=== PATIENT | male | born 1955 | race African-American/Black ===

== ENCOUNTER 2017-03-13 02:30 | Inpatient (IN) | payer OTHER ==
[~2017-03-13] VITALS: Ht 180.3 cm; Wt 103.3 kg
[2017-03-13] VITALS (13 sets, daily range): BP systolic 110–143; BP diastolic 64–85
--- NOTE | ~2017-03-13 | CATHLAB ---
[facility] [place] [address] INVASIVE PROCEDURE REPORT Name: KASHIF CHO JR Room #: 203-P ADM IN ..#: [id number] Admission: 03/13/17 Attend Phys: Eliezer Keith Discharge: Date of : 57 Date of Service: 03/13/17 0827 Report #: [id number] THIS REPORT FOR: //name// APPROVED REPORT Patient Details Patient Status: ED Room #: The patient is a 62 year-old male Event Personnel Feliz Crocker Jailer Chief, Kindra Wyman RN RN, Gaurav Arteaga, Melita Marquez Monitor, Kindra Stoner Monitor Procedures Performed Left Heart Cath w/or w/o Coronaries [id number] [facility] ADITHYA Revasc AMI Total/Sub Single CIRC C9606 AMIREVSING Procedure Narrative The Right Groin^ was infiltrated with 1% Lidocaine subcutaneous anesthesia. A PINNACLE 6FR Sheath #[id number] sheath was inserted into the RFA^. Coronary angiography was performed using coronary diagnostic catheters. The right coronary system was accessed and visualized with a JR4 catheter. The left coronary system was accessed and visualized with a JL4 catheter. The left ventricle was accessed and visualized with a PIGTAIL catheter. Left ventricular/Aortic Valve gradient assessed via catheter pullback. Left ventriculogram was performed in 30 degree projection. There was no hematoma. Intraoperative Conscious Sedation Sedation start time: 4:08 Case end Time: 5:00 Versed 1.0 mg Fluoro Time: 8.30 minutes Dose: DAP 1500.00 cGycm2 1500 mGy Contrast Type and Amount: Omnipaque 155 ml Coronary Angiography The patient's coronary anatomy is co- dominant. Diagnostic Cath Left Main Angiographically normal LAD The LAD and several small diagonal branches were [facility] [address] [place] [address] INVASIVE PROCEDURE REPORT Name: KASHIF CHO Room #: 203-P [facility] IN [facility].#: [id number] Admission: 03/13/17 Attend Phys: Eliezer Keith Discharge: Date of : 57 Date of Service: 03/13/17 0827 Report #: [id number] angiographically normal Circumflex Mid circumflex was acutely occluded with VIANNEY 0 flow OM1 The first, mid vessel arising marginal branch was large in caliber and exhibited mild plaquing OM2 The second, distally arising marginal branch was smaller in caliber and exhibited mild proximal plaquing Right Coronary Co-ominant right coronary. 40-50% distal right coronary before the origin of the posterior descending. R PDA Mild 20% mid vessel PDA plaquing Ramus Large ramus branch that bifurcated in its mid portion and was angiographically normal Left Ventriculography The left ventricle is normal in size with normal contractility. The left ventricular ejection fraction is estimated to be 50-55%. Left ventricular wall motion abnormalities are present. There is no mitral insufficiency. Hemodynamics The aortic pressure is 188/90 mmHg with a mean of 71 mmHg. The left ventricular pressure is 149/15 mmHg with a mean of mmHg. The left ventricular end diastolic pressure is 31 mmHg. There was no gradient across the aortic valve upon pullback. Pullback from the left ventricle to the aorta revealed no gradient across the aortic valve. PCI Technique Mid Cx wired with 0.014in Luge wire, then ballooned with 2.5mm MOZEC balloon. VIANNEY III flow restored. Balloon removed and a long, variable and severe mid-Cx stenosis stented with a 3.0 x 30mm Resolute stent, post-dilated with a 3.0mm NC Trek to 18 CRIS VIANNEY III flow restored with 0% residual stenosis PCI Technique Lesion Anticoagulation was achieved with Heparin, integrelin. Patient was preloaded with Effient PO 60 mg. Percutaneous coronary intervention was performed on the mid circumflex artery segment. The lesion stenosis prior to intervention was 100% with VIANNEY 0 flow. A VISTA 6FR XB 3.5 #[id number] Guide Catheter was used to engage the LCA ostium. A Luge Wire .014 x 182CM #[id number] Interventional Guidewire was used to cross the lesion. BALLOON DILATION A Balloon catheter 2.5X14 MOZEC was inserted and inflated up to 10atm for 25seconds. Repeat angiography revealed the following [facility] [address] [place] [address] INVASIVE PROCEDURE REPORT Name: KASHIF CHO Room #: 203-P [facility] IN M.R.#: [id number] Admission: 03/13/17 Attend Phys: Eliezer Keith Discharge: Date of : 57 Date of Service: 03/13/17 0827 Report #: [id number] post-dilatation results: Yazidi of VIANNEY III flow. Long, variable mid-Cx stenosis. Additional Inflation: 12atm for 20seconds. STENT DEPLOYMENT A drug-eluting stent RESOLUTE RX 3.0 X 30 #[id number] was inserted and inflated up to 12atm for 20seconds. Repeat angiography revealed the following post-stent deployment results: 0% residual with VIANNEY III flow. POST STENT DEPLOYMENT BALLOON DILATION A Balloon catheter TREK NC RX 3.0 X 15 #[id number] was inserted and inflated up to 16atm for 20seconds. Repeat angiography revealed the following post-dilatation results: 0% residual with VIANNEY III flow.. Additional Inflation: 18atm for 30seconds. Additional Inflation: 18atm for 20seconds. OM 1 branch, discreet spasm eleviated with IC NTG Final angiography reveals 0 % stenosis with VIANNEY 3 flow. PCI Technique Lesion 2 Percutaneous Coronary Intervention was performed on the Unspecified. PCI Technique Lesion 3 Percutaneous Coronary Intervention was performed on the Unspecified. Conclusion 1. Mild left ventricular dysfunction with mild inferior wall hypokineisis (EF 55%) 2. Normal left main 3. Normal left anterior descending 4. Occlusion of mid-Cx, successfully stented with 3.0 x 30mm Resolute medicated stent. Post dilated to 3.1mm w/non-compliant balloon 5. Co-dominant RCA. 40-50% distal RCA before origin of PDA Recommendations Smoking Cessation Cardiac Rehabilitation Referral Aggressive Medical Therapy Medications Administered LUIS Inhibitor (any) Aspirin (any) Beta Shavonne (any) [facility] [place] [address] [place] [address] INVASIVE PROCEDURE REPORT Name: KASHIF CHO JR Room #: 203-P ADM IN M.R.#: [id number] Admission: 03/13/17 Attend Phys: Eliezer Keith Discharge: Date of : 57 Date of Service: 03/13/17826 Report #: [id number] Statin (any) Prasugrel Cardiac Rehabilitation Referral Smoking Cessation <ELECTRONICALLY SIGNED> By: Feliz Crocker MD, FACC 03/13/17826 6 6 Feliz Crocker MD, FACC /INF
--- NOTE | ~2017-03-13 | HC ---
[facility] [place] [address] CONSULTATION Name: KASHIF CHO Room #: 203-P [facility] IN M.R.#: [id number] Admission: 03/13/17 Attend Phys: Eliezer Bolivar Discharge: Date of : 57 Report #: [id number] THIS REPORT FOR: //name// CC: Elliott Bolivar DATE OF SERVICE: 03/13/2017 DATE OF SERVICE: 03/13/2017 REASON FOR CONSULTATION: Chest pain. HISTORY OF PRESENT ILLNESS: The patient is a 62-year-old with history of hypertension and tobacco dependency. Yesterday morning, he experienced midsternal chest and jaw pain. This waxed and waned throughout the day and actually got worse this evening, prompting him to call paramedics. He was brought to the Emergency Department where his initial EKG demonstrated sinus bradycardia without acute ST or T-wave changes. A followup EKG demonstrated [address] elevation. I was asked to see him in this regard. He does have ongoing mild chest discomfort with diaphoresis. He denies heart failure symptoms. No prior cardiac history. No history of palpitations, near syncope or syncope. ALLERGIES: No known drug allergies. MEDICATIONS: Include lisinopril. PAST MEDICAL HISTORY: Past medical history and medical records have been reviewed. There are no significant hospitalizations, illnesses or surgeries. 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 He is a smoker. . FAMILY HISTORY: Unremarkable for premature coronary disease. REVIEW OF SYSTEMS: All systems negative except as that noted above. PHYSICAL EXAMINATION: GENERAL: A pleasant gentleman who is in no acute distress. VITAL SIGNS: Blood pressure is 114/67, heart rate is 62 and regular. He is afebrile. HEENT: There are neither xanthelasma, subcutaneous xanthomata, oral mucosal or digital cyanosis or kyphoscoliosis present. CHEST: Clear to auscultation and percussion. CARDIOVASCULAR: Regular rate and rhythm with normal S1, S2. ABDOMEN: Soft and nontender. [facility] [address] [place] [address] CONSULTATION Name: KASHIF CHO Room #: 203-P [facility] IN M.R.#: [id number] Admission: 03/13/17 Attend Phys: Eliezer Bolivar Discharge: Date of : 57 Report #: [id number] EXTREMITIES: Without cyanosis, clubbing or edema. Radial pulses are 2+. NEUROLOGIC: Alert with a nonfocal exam. LABORATORY DATA: Sodium is 139, potassium 3.6, creatinine 1.2, troponin 0.15. White count is 8.3, hemoglobin 13, hematocrit 40, platelet count 251. Chest x-ray is pending. IMPRESSION: 1. Acute inferior myocardial infarction. 2. Tobacco dependency. 3. Hypertension. RECOMMENDATIONS: 1. Therapy with aspirin, antiplatelet, nitrates. Hold beta blockade given relative bradycardia. 2. Urgent coronary angiography. I have discussed the angiographic procedure in detail including its associated risks. After a thorough discussion of the procedure, its risks and alternatives and after answering his questions in detail, he is agreeable to proceeding. <ELECTRONICALLY SIGNED> By: Feliz Crocker MD, FACC 03/14/17 1711 0353 [id number] Feliz Crocker MD, FACC /nt
--- NOTE | ~2017-03-13 | EKG ---
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: MZOOK : 1955 Requested By: Marta Anand Order Number: [id number] MD: Fei Webster Measurements Intervals [place] Rate: 46 P: 80 [place]: 179 QRS: 95 QRSD: 92 T: 91 QT: 482 QTc: 422 Interpretive Statements Sinus bradycardia Right axis deviation ST elevation, consider inferior injury Compared to ECG 04/30/2001 05:59:35 Possible ischemia now present ST (T wave) deviation now present Myocardial infarct finding now present Sinus rhythm no longer present Electronically Signed On 03-14-2017 6:44:15 CDT by Fei Webster [email or web address] <ELECTRONICALLY SIGNED> By: Fei Webster MD 03/14/17 0644 1 1 Fei Webster MD /EPI
--- NOTE | ~2017-03-13 | EKG ---
[address] [address] ELECTROCARDIOGRAM REPORT Name: KASIHF CHO JR Room #: 203-P ADM IN M.R.#: [id number] Admission: 03/13/17 Attend Phys: Eliezer Bolivar Discharge: Date of : 57 Report #: [id number] THIS REPORT FOR: //name// [facility] Test Date: 2017-03-13 Test Time: 06:36:42 Pat Name: KASHIF CHO Department: Room: 203 Gender: M Torpedo Worker: SANDRA : 1955 Requested By: Feliz Crocker Order Number: [id number] MD: Fei Webster Measurements Intervals [place] Rate: 66 P: 74 [place]: 189 QRS: 88 QRSD: 91 T: 18 QT: 439 QTc: 460 Interpretive Statements Sinus rhythm Borderline right axis deviation Minimal ST elevation, anterior leads Compared to ECG 04/30/2001 05:59:35 ST (T wave) deviation now present Electronically Signed On 03-14-2017 6:46:13 CDT by Fei Webster [email or web address] <ELECTRONICALLY SIGNED> By: Fei Webster MD 03/14/17645 5 5 Fei Webster MD /EPI
--- NOTE | ~2017-03-13 | EKG ---
[address] [address] ELECTROCARDIOGRAM REPORT Name: KASHIF CHO Room #: 203-P ADM IN M.R.#: [id number] Admission: 03/13/17 Attend Phys: Eliezer Bolivar Discharge: Date of : 57 Report #: [id number] THIS REPORT FOR: //name// [facility] ED Test Date: 2017-03-13 Test Time: 02:58:25 Pat Name: KASHIF CHO Department: Room: 203 Gender: M Offal Roller: MZOOK : 1955 Requested By: Marta Anand Order Number: [id number] MD: Fei Webster Measurements Intervals [place] Rate: 51 P: 87 [place]: 187 QRS: 97 QRSD: 90 T: 96 QT: 465 QTc: 429 Interpretive Statements Sinus rhythm Inferior infarct, acute (RCA) Probable RV involvement, suggest recording right precordial leads Electronically Signed On 03-14-2017 6:44:44 CDT by Fei Webster [email or web address] <ELECTRONICALLY SIGNED> By: Fei Webster MD 03/14/17 0644 D: [id number] Fei Webster MD /NATALIE
--- NOTE | ~2017-03-13 | EKG ---
[address] [place] [address] ELECTROCARDIOGRAM REPORT Name: KASHIF CHO JR Room #: 203-P ADM IN M.R.#: [id number] Admission: 03/13/17 Attend Phys: Eliezer Bolivar Discharge: Date of : 57 Report #: [id number] THIS REPORT FOR: //name// [facility] Test Date: 2017-03-14 Test Time: 06:07:02 Pat Name: KASHIF CHO Department: Room: 203 P Gender: M Backside Grinder: SANDRA : 1955 Requested By: Feliz Crocker Order Number: [id number] MD: Feliz Crocker Measurements Intervals [place] Rate: 61 P: 60 [place]: 175 QRS: 76 QRSD: 99 T: -16 QT: 442 QTc: 446 Interpretive Statements Sinus rhythm RSR' in V1 or V2, right VCD Borderline T abnormalities, diffuse leads Compared to ECG 04/30/2001 05:59:35 RSR' in V1 or V2 now present T-wave abnormality now present Electronically Signed On 03-14-2017 10:14:07 CDT by Feliz Crocker [email or web address] <ELECTRONICALLY SIGNED> By: Feliz Crocker MD, [facility] 03/14/17 [phone] Feliz Crocker MD, [facility] /EPI
[2017-03-13 02:40] LABS: ABSOLUTE NEUTROPHILS 3.1 thou/uL (1.4-8.2); BASOPHILS 1.1 % (0.0-2.0); EOSINOPHILS 3.7 % (0.0-3.0); HEMATOCRIT 40.2 % (42.0-52.0); HEMOGLOBIN 13.8 gm/dL (14.0-18.0); MCH 31.7 pg (26.0-34.0); MCHC 34.2 g/dL (28.0-37.0); MCV 92.7 fL (80.0-100.0); MONOCYTES 10.2 % (1.0-8.0); PLATELET COUNT 251 thou/uL (150-400); RBC 4.34 mil/uL (4.50-6.00); RDW 14.4 % (10.5-14.5); WBC 8.3 thou/uL (4.0-11.0)
[2017-03-13 02:42] LABS: MANUAL DIFF NO
[2017-03-13 02:46] LABS: CREATININE 1.2 mg/dL (0.7-1.3); POTASSIUM 3.6 mmol/L (3.5-5.1)
[2017-03-13 02:55] LABS: APTT 26.6 Seconds (24.5-32.8); PROTIME 10.2 Seconds (9.3-11.4); TROPONIN-I 0.15 ng/mL (<0.06)
[2017-03-13] MEDS ORDERED: LISINOPRIL10 MG PO (03:25)
[2017-03-13 04:46] LABS: CHOLESTEROL 231 mg/dL (<200); HDL CHOLESTEROL 45 mg/dL (>40); LDL CHOLESTEROL 168 mg/dL (<100); TC:HDL 5.1 Ratio (Not establshd); TRIGLYCERIDE 90 mg/dL (<150); VLDL 18 mg/dL (<40)
[2017-03-13 04:47] LABS: SERUM ASSESSMENT Clear
[2017-03-14 04:00] VITALS: BP 142/81
[2017-03-14 04:27] LABS: HEMATOCRIT 37.5 % (42.0-52.0); HEMOGLOBIN 12.8 gm/dL (14.0-18.0); MCH 31.8 pg (26.0-34.0); MCHC 34.1 g/dL (28.0-37.0); MCV 93.2 fL (80.0-100.0); RBC 4.02 mil/uL (4.50-6.00); RDW 14.5 % (10.5-14.5); WBC 7.3 thou/uL (4.0-11.0)
[2017-03-14 04:55] LABS: CALCIUM 8.4 mg/dL (8.5-10.1); CREATININE 1.1 mg/dL (0.7-1.3)
[2017-03-14 04:57] LABS: TROPONIN-I 16.38 ng/mL (<0.06)
[2017-03-14] MEDS ORDERED: ATORVASTATIN CA40 MG PO (07:58)
[2017-03-14] MEDS ORDERED: LOPRESSOR25 PO (07:58)
[2017-03-14] MEDS ORDERED: EFFIENT10 MG PO (07:59)
[2017-03-14] MEDS ORDERED: NITROGLYCERIN0.4 MG SUBLING (07:59)
[2017-03-14] MEDS ORDERED: ASPIRIN325 PO (07:59)
[2017-03-14 08:35] VITALS: BP 143/77
[2017-03-14 09:52] VITALS: BP 143/77
[2017-03-14 11:54] VITALS: BP 138/94
[2017-03-14 16:31] VITALS: BP 128/81
[2017-03-14 19:31] VITALS: BP 142/73
[2017-03-15 04:54] VITALS: BP 142/79
[2017-03-15 07:55] VITALS: BP 139/84
[2017-03-15] MEDS ORDERED: PLAVIX 75 MG TA75 M1 PO (07:58)
[2017-03-15 10:15] VITALS: BP 143/77
== END 2017-03-15 11:00 | disposition home or self-care (01) | DRG 247 ==
LOC: ER 02:30 → 2N 03:34 → EROBS 03:34 → 2N 04:19
PROVIDERS: Emergency Medicine; Internal Medicine; Nurse Practitioner Family
PROC: B2151ZZ Fluoroscopy of Left Heart using Low Osmolar Contrast (ICD-10-PCS; principal; 2017-03-13)
PROC: 4A023N7 Measurement of Cardiac Sampling and Pressure, Left Heart, Percutaneous Approach (ICD-10-PCS; principal; 2017-03-13)
PROC: 027034Z Dilation of Coronary Artery, One Artery with Drug-eluting Intraluminal Device, Percutaneous Approach (ICD-10-PCS; principal; 2017-03-13)
PROC: B2111ZZ Fluoroscopy of Multiple Coronary Arteries using Low Osmolar Contrast (ICD-10-PCS; principal; 2017-03-13)
DX: I21.19 ST elevation (STEMI) myocardial infarction involving other coronary artery of inferior wall (principal); I10 Essential (primary) hypertension; E78.00 Pure hypercholesterolemia, unspecified; F17.210 Nicotine dependence, cigarettes, uncomplicated; I25.5 Ischemic cardiomyopathy; Z79.899 Other long term (current) drug therapy; Z82.49 Family history of ischemic heart disease and other diseases of the circulatory system; Z71.6 Tobacco abuse counseling; Z53.29 Procedure and treatment not carried out because of patient's decision for other reasons
CPT/HCPCS: 10081

== ENCOUNTER → 2019-11-26 | Outpatient (CLI) | payer OTHER ==
[~2019-11-26] MED LIST: ASPIRIN325 PO; ATORVASTATIN CA40 MG PO; EFFIENT10 MG PO; LISINOPRIL10 MG PO; LOPRESSOR25 PO; NITROGLYCERIN0.4 MG SUBLING; PLAVIX 75 MG TA75 M1 PO
== END ==
LOC: SJCVCIMAG 10-06 07:22
PROVIDERS: ATTEND Internal Medicine
DX: I71.4 Abdominal aortic aneurysm, without rupture (principal); I65.23 Occlusion and stenosis of bilateral carotid arteries; Z87.891 Personal history of nicotine dependence